=== PATIENT | female | born 1945 | race Caucasian/White ===

== ENCOUNTER → 2018-11-22 09:14 | Outpatient (CLI) | payer MEDICARE, OTHER, SELFPAY | PROVIDERS: PCP Internal Medicine; Visit Provider Physician Assistant | DX: M81.0 Age-related osteoporosis without current pathological fracture (principal); Z78.0 Asymptomatic menopausal state; Z87.891 Personal history of nicotine dependence | CPT/HCPCS: 77080 ==

== ENCOUNTER → 2019-04-11 13:32 | Oncology outpatient (ONC) | payer MEDICARE, OTHER, SELFPAY ==
[2019-04-11 13:50] VITALS: BP 137/59; PULSE 61; RESP 16; TEMP 36.8; O2SAT 97
[2019-04-11] MEDS: ZOLEDRONIC ACID 5 MG in SODIUM CHLORIDE 0.9% 100 ML 318.75 ML IV (14:06)
== END ==
LOC: ONC 13:36
PROVIDERS: PCP Internal Medicine; Visit Provider Internal Medicine
DX: M81.0 Age-related osteoporosis without current pathological fracture (principal)
CPT/HCPCS: 96365; J3489